=== PATIENT | female | born 1970 | race Hispanic/Latino ===

== ENCOUNTER 2017-03-27 06:07 | Emergency (ER) | payer OTHER ==
[~2017-03-27] VITALS: Ht 160 cm; Wt 81.8 kg
[2017-03-27 06:10] VITALS: BP 150/88; PULSE 72; RESP 16; O2SAT 99
--- NOTE | 2017-03-27 06:21 | ED.REPORT ---
HPI-Chest Pain 40 and Over Date of Service Mar 27, 2017 ED Provider: The patient is a 46 year old female with history of diabetes mellitus and high cholesterol, who presents to the emergency department complaining of chest pain that was present upon wakening this morning at 0500. The pain is located to her central chest and radiates into her upper back and bilateral shoulder blades. She describes the pain as sharp. Her pain is exacerbated with deep breaths, movement, twisting. She denies fever, chills, cough, shortness of breath or lower extremity swelling. She denies history of blood clots. She denies recent long periods of immobilization or hormone treatment. There is no exertional component to her chest pain. 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 Nursing Notes Stated Complaint: CHEST PAINS Chief Complaint: Chest Pain Nursing Notes Reviewed: Yes Allergies: Coded Allergies: No Known Allergies (Unverified , 03/27/17) General Time Seen by MD: 06:20 Chief Complaint Chest pain Hx Obtained From: Patient, Other family... Sudden in Onset?: Yes Onset Occurred: 1 - 4 hours ago Symptom Duration: Since onset Location: : Chest left: Chest right Quality: Painful, Pleuritic, Sharp Radiation: : Back: Shoulder left: Shoulder right Severity: Current: Moderate Severity: Maximum: Severe Pertinent Negative: Pt denies other symptoms Recent Healthcare: No recent doctor visit, No recent hospitalization Similar Sx Previous: No Past Medical History Past Medical History Reports: Diabetes mellitus, Hyperlipidemia Family History Noncontributory Smoking History Unknown if Ever Smoker Social History Other Social History: Good social support, Local resident Occupation Housekeeping Ambulatory Status Independent Review of Systems Constitutional: Denies: Chills, Fever Respiratory: Reports: Pleuritic pain, Denies: Non-productive cough, Shortness of breath Cardiovascular: Reports: Chest pain Musculoskeletal: Denies: Extremity swelling Complete sys rev & neg: except as marked. Physical Exam Initial Vital Signs Vital Signs (First) Date Time Temp Pulse Resp B/P Pulse Ox O2 Delivery O2 Flow Rate FiO2 03/27/17 06:10 36.7 72 16 150/88 99 Room Air Initial VS: Reviewed Head / Eyes: Atraumatic, Normocephalic, PERRL Neck: Supple, Non-tender, Full range of motion Extremities: Vascular intact, Neuro intact, No swelling, No tenderness Skin: Warm, Dry, No cyanosis Neurologic: Alert, Oriented, Nonfocal Psychiatric: Mood/affect normal, Behavior normal, Normal thought content General/Constitutional: Awake, Alert, Cooperative Respiratory / Chest: Breath sounds NL, Breath sounds = bilat, No respiratory distress, No rales, No rhonchi, No wheezing, No retractions, No stridor, No chest wall deformity Mild reproducible tenderness about the bilateral chest wall with firm palpation. No crepitus or palpable deformities of the ribs. Lower Extremity / Pelvis / MS: Neurologic intact, Vascular intact, No edema No calf swelling or tenderness. ENT: Airway patent Mouth: Positive: Mucous membranes dry Interpretation & Diagnostics Lab Results Interpretation Result Diagram: 03/27/17 0629 03/27/17 0629 Test 03/27/17 06:29 White Blood Count 7.7th/mm3 (3.8-10.1) Red Blood Count 4.46mil/mm3 (3.90-5.20) Hemoglobin 12.3g/dL (12.0-15.6) Hematocrit 37.3% (35.0-46.0) Mean Corpuscular Volume 83.6fL (81-100) Mean Corpuscular Hemoglobin 27.6pg (27.0-35.0) Mean Corpuscular Hemoglobin Concent 33.0% (32.0-37.0) Red Cell Distribution Width 15.2% (12.3-15.4) Platelet Count 266bil/L (150-400) Neutrophils (%) (Auto) 58.5% (40-74) Lymphocytes (%) (Auto) 27.9% (14-46) Monocytes (%) (Auto) 6.3% (4-12) Eosinophils (%) (Auto) 6.3% (0-5) Basophils (%) (Auto) 0.7% (0-3) Sodium Level 140mEq/L (134-144) Potassium Level 4.1mEq/L (3.5-5.2) Chloride Level 102mEq/L (97-108) Carbon Dioxide Level 24mmol/L (18-29) Blood Urea Nitrogen 13mg/dL (6-24) Creatinine 0.50mg/dL (0.57-1.00) Estimat Glomerular Filtration Rate 189mL/min (>59) Glucose Level 119mg/dL (60-99) Calcium Level 9.3mg/dL (8.5-10.1) Magnesium Level 2.0mg/dL (1.6-2.6) Total Bilirubin 1.1mg/dL (0.0-1.2) Aspartate Amino Transf (AST/SGOT) 10U/L (0-50) Alanine Aminotransferase (ALT/SGPT) 12U/L (0-32) Alkaline Phosphatase 69U/L (25-150) Troponin T < 0.010ug/L (0.0-0.011) Total Protein 7.3g/dL (6.4-8.4) Albumin 3.8g/dL (3.4-5.0) Hold Henry Top Tube Received (Received) ECG Interpretation ECG Interpretation: Normal sinus rhythm with a rate of 69 Normal intervals Normal axis No ST segment changes No acute T wave abnormalities No prior EKG available for comparison Time: 06:22 Interpreted by: ED physician X-Ray Chest Interpretation Interpretation / Wet Read by: Wet read ED physician NL X-Ray Chest Findings: No acute disease Re-Eval/Medical Decision Med Decision/Clinical Course The patient is a 46 year old female with history of diabetes mellitus and high cholesterol, who presents to the emergency department complaining of chest pain that was present upon wakening this morning at 0500. The pain is located to her central chest and radiates into her upper back and bilateral shoulder blades. She describes the pain as sharp. Her pain is exacerbated with deep breaths, movement, twisting. She denies fever, chills, cough, shortness of breath or lower extremity swelling. She denies history of blood clots. She denies recent long periods of immobilization or hormone treatment. There is no exertional component to her chest pain. 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 Here in the emergency department the patient is afebrile with stable vital signs and examination as above. She has reproducible chest wall pain with firm palpation. LABS: CBC unremarkable, CMP unremarkable, troponin negative CXR: Per my interpretation demonstrated no acute cardiopulmonary process or focal consolidation Patient has no major risk factors for pulmonary embolism. She is without shortness of breath, tachypnea or tachycardia. Physical exam reveals no findings suggestive of DVT. I do not feel that workup for pulmonary embolism is indicated. Nature of pain, presentation not suggestive of acute coronary syndrome. Initial screening EKG and troponin reassuring. Patient has no history of coronary artery disease. She does have some risk factors however she is in the low risk category per HEART score. I do not feel that further immediate workup for ACS is indicated. The patient prefers to be discharged and will follow up with her primary care physician in the next couple of days and pursue outpatient stress test. There is no evidence of pneumonia or pneumothorax. I feel that she is appropriate for further outpatient management. She is chest pain-free. Here in the emergency room she was treated with aspirin and one tablet of [place] and reported symptom resolution. Prior to discharge follow-up and return precautions were reviewed in detail with the patient who verbalized understanding and agreement with the plan. The patient was discharged in stable condition. Source of Hx: Family Time of Eval: 09:56 Re-Evaluation/Progress Note: Rechecked the patient. Discussed plan for discharge with the patient. All questions were addressed. Counseled Regarding: Diagnosis, Lab results, Need for follow-up, When/why to return to ED Discharge & Departure Primary Impression: Chest pain Chest pain type: unspecified Qualified Code: R07.9 - Chest pain, unspecified Additional Impressions: History of diabetes mellitus History of hyperlipidemia Disposition: Home Discharge Condition All VS Reviewed: Yes Condition: Stable Patient Instructions: Chest Pain (ED) Additional Instructions: Thank you for entrusting us with your care today. Your workup today is reassuring. There is no evidence of a heart attack at this time. Followup with your regular doctor in the next few days for re-evaluation. Discuss the option of getting an outpatient stress test. Return to the emergency department if you develop increased pain, shortness of breath, diaphoresis, or any other new or concerning symptoms. Scribe Attestation Portions of this note were transcribed by Tanya Mcdaniel. I, Dr. Rosario personally performed the history, physical exam and medical decision-making; I reviewed and confirmed the accuracy of the information in the transcribed note. Signed by: Jimmy Julian, 03/27/2017 at 1015. Juan R Rosario MD Mar 27, 2017 06:21 Tanya Mcdaniel Mar 27, 2017 07:18
[2017-03-27 06:47] LABS: BASOPHILS % (AUTO) 0.7 % (0-3); EOSINOPHILS % (AUTO) 6.3 % (0-5); MONOCYTES % (AUTO) 6.3 % (4-12); Mean Corpuscular Hemoglobin 27.6 pg (27.0-35.0); Mean Corpuscular Volume 83.6 fL (81-100); NEUTROPHILS % (AUTO) 58.5 % (40-74); Platelet Count 266 bil/L (150-400)
[2017-03-27] MEDS ORDERED: HYDROcodone-APAP 5-325 mg Tablet PO ONE (07:20)
[2017-03-27 07:28] VITALS: BP 154/78; PULSE 62; RESP 17; O2SAT 98
[2017-03-27 07:43] LABS: TROPONIN T < 0.010 ug/L (0.0-0.011)
[2017-03-27 08:54] VITALS: BP 132/68; PULSE 62
[2017-03-27 10:08] VITALS: BP 125/53; PULSE 63; RESP 17; O2SAT 97
--- NOTE | 2017-03-27 16:27 | DRSVH ---
PROCEDURE: X-RAY CHEST ONE VIEW, PORTABLE ([id number]) INDICATIONS: CHEST PAIN TECHNIQUE: One view of the chest was acquired. COMPARISON: None. FINDINGS: Surgical changes and devices: None. Lungs and pleura: No pleural effusions or pneumothorax. Lungs are clear. Mediastinum: Mediastinal contours appear normal. Heart size is normal. Bones and chest wall: No suspicious bony lesions. Overlying soft tissues appear unremarkable. IMPRESSION: No acute cardiopulmonary disease. Dictated by: Rigoberto Alvarez [facility] Interpreted: Frank Booth MD on 03/27/2017 at 9:54 Approved by: Frank Booth M.D. on 03/27/2017 at 16:25
== END 2017-03-27 10:09 | disposition home or self-care (01) ==
LOC: SED 06:07
DX: R07.9 Chest pain, unspecified (principal); E11.9 Type 2 diabetes mellitus without complications; E78.5 Hyperlipidemia, unspecified